=== PATIENT | male | born 1995 | race Two or more races ===

== ENCOUNTER 2016-10-11 10:52 | Emergency (ER) | payer OTHER ==
[~2016-10-11] VITALS: Ht 170.2 cm; Wt 78.0 kg
[~2016-10-11 10:52] MED LIST: AMOXICILLIN500 MG PO; AMOXICILLIN875 MG PO; CLONAZEPAM0.5 MG PO; CYANOCOBALAM1000 MCG PO; Ceftin PO; DECADRON0.5 MG PO; DECADRON2 MG PO; DEXAMETHASONE PO; DEXAMETHASONE0.5 MG PO; EFFEXOR75 MG PO; FLORINEF ACETA0.1 MG PO; FOLIC ACID1 MG PO; GINKGO BILOBA120 MG PO; LO-DOSE ASPIRIN81 M1 PO; MOTRIN600 MG PO; NAPROSYN500 MG PO; NICOTINE PATCH1 EAC1 TD; OMEPRAZOLE20 MG PO; OMEPRAZOLE40 M1 PO; PRILOSEC40 MG PO; RISPERIDONE3 MG PO; STRESS; SUBOXONE 8 MG-1 EAC2 SL; TAMIFLU75 MG PO; THERAGRAN1 TABLET PO; Thiamine,Vitamin B1 PO; VIIBRYD40 MG PO; VISINE15 ML BOTH EYES; VITAMIN B-1100 MG PO; ZOFRAN ODT8 MG PO; ZOFRAN4 MG PO; ZUBSOLV 8.6-2.1 EACH SL; [UNRECOGNIZED DRUG - REMARK] PO
[2016-10-11 11:23] LABS: HEMATOCRIT 54.9 % (38.0-50.0); MCH 31.1 PG (29.0-34.0); MCHC 35.3 G/DL (30.0-36.0); MEAN PLAT.VOLUME 10.3 uM^3 (9.0-12.4); PLATELET COUNT 169 K/uL (156-360); RBC DIS.WIDTH-CV 12.4 % (11.8-14.6); RBC DIS.WIDTH-SD 40.6 % (39-53); RED BLOOD COUNT 6.24 M/uL (4.00-5.50); WHITE BLOOD COUNT 13.6 K/uL (4.1-10.2)
[2016-10-11 11:30] LABS: CHLORIDE 105 mEq/L (99-109); POTASSIUM 4.2 mEq/L (3.7-5.4); SODIUM 136 mEq/L (136-147)
[2016-10-11 11:33] LABS: GLUCOSE 85 mg/dL (70-99)
[2016-10-11 11:34] LABS: ANION GAP 8 MEQ/L (2-14)
[2016-10-11 11:35] LABS: TOTAL BILIRUBIN 0.6 mg/dL (0.0-1.0)
[2016-10-11 11:36] LABS: ALKALINE PHOSPHATASE 71 IU/L (3-129); GFR ESTIMATE (CALCULATED) > 59 mL/min/
[2016-10-11 11:37] LABS: UREA NITROGEN (BUN) 17 mg/dL (9-23)
[2016-10-11 13:10] LABS: BILIRUBIN NEGATIVE; BLOOD NEGATIVE; COLOR YELLOW ((YELLOW)); GLUCOSE (STRIP) NEGATIVE; KETONES NEGATIVE; LEUKOCYTES NEGATIVE; NITRITE NEGATIVE; PROTEIN (STRIP) NEGATIVE; SPECIFIC GRAVITY 1.023 (1.000-1.030); UROBILINOGEN 0.2 MG/DL (0.2-1.0)
[2016-10-11 13:28] LABS: ADD MIUA? NO; UCUL ADDED? NO
[2016-10-11] MEDS ORDERED: BENTYL20 MG PO (15:00)
[2016-10-11] MEDS ORDERED: IMODIUM MS REL1 EACH PO (15:00)
[2016-10-11] MEDS ORDERED: ZOFRAN ODT4 MG PO (15:00)
[2016-10-11 15:19] VITALS: BP 96/65
== END 2016-10-11 15:15 | disposition home or self-care (01) ==
LOC: EME 10:52
DX: R10.9 Unspecified abdominal pain (principal); R11.10 Vomiting, unspecified; R19.7 Diarrhea, unspecified; K21.9 Gastro-esophageal reflux disease without esophagitis; J45.909 Unspecified asthma, uncomplicated; F17.200 Nicotine dependence, unspecified, uncomplicated
CPT/HCPCS: 80053; 81003; 85027; 99281; 99285; J2405; J2930; J7030

== ENCOUNTER 2017-12-13 23:01 | Emergency (ER) | payer OTHER ==
[~2017-12-13] VITALS: Ht 167.6 cm; Wt 90.4 kg
[~2017-12-13 23:01] MED LIST changes: +BENTYL20 MG PO; +IMODIUM MS REL1 EACH PO; +ZOFRAN ODT4 MG PO
[2017-12-13 23:46] LABS: HEMATOCRIT 41.2 % (38.0-50.0); MCH 31.1 PG (29.0-34.0); MCHC 36.4 G/DL (30.0-36.0); MCV 85.5 FL (86-99); PLATELET COUNT 215 K/uL (156-360); RBC DIS.WIDTH-CV 11.5 % (11.8-14.6); RBC DIS.WIDTH-SD 35.8 % (39-53); RED BLOOD COUNT 4.82 M/uL (4.00-5.50); WHITE BLOOD COUNT 9.6 K/uL (4.1-10.2)
[2017-12-14] LABS: CHLORIDE 95 mEq/L (99-109); POTASSIUM 3.1 mEq/L (3.7-5.4); SODIUM 128 mEq/L (136-147)
[2017-12-14 00:02] LABS: GLUCOSE 107 mg/dL (70-99)
[2017-12-14 00:05] LABS: SERUM ETHYL ALCOHOL < 10 mg/dL
[2017-12-14 00:06] LABS: GFR ESTIMATE (CALCULATED) > 59 mL/min/ (58.99-99999); UREA NITROGEN (BUN) 8 mg/dL (9-23)
[2017-12-14 00:18] LABS: APPEARANCE CLEAR ((CLEAR)); BILIRUBIN NEGATIVE; BLOOD NEGATIVE; COLOR YELLOW ((YELLOW)); GLUCOSE (STRIP) NEGATIVE; KETONES NEGATIVE; LEUKOCYTES NEGATIVE; NITRITE NEGATIVE; PROTEIN (STRIP) NEGATIVE; SPECIFIC GRAVITY 1.019 (1.000-1.030); UCUL ADDED? NO
[2017-12-14 00:41] LABS: AMPHETAMINE NEGATIVE (500 ng/mL); BARBITURATES NEGATIVE (200 ng/mL); BENZODIAZEPINES NEGATIVE (150 ng/mL); BUPRENORPHINE NEGATIVE (10 ng/mL); COCAINE NEGATIVE (150 ng/mL); METHADONE NEGATIVE (200 ng/mL); METHAMPHETAMINE NEGATIVE (500 ng/mL); OPIATES (MORPHINE) NEGATIVE (100 ng/mL); OXYCODONE NEGATIVE (100 ng/mL); PHENCYCLIDINE NEGATIVE (25 ng/mL); PROPOXYPHENE NEGATIVE (300 ng/mL); THC CANNABINOIDS NEGATIVE (50 ng/mL); TRICYCLIC ANTIDEPRESSANTS NEGATIVE (300 ng/mL)
[2017-12-14] MEDS ORDERED: TRAZODONE HCL50 MG PO (03:30)
[2017-12-14 03:45] VITALS: BP 137/90
== END 2017-12-14 03:52 | disposition home or self-care (01) ==
LOC: EME 23:01
PROVIDERS: Emergency Medicine
DX: G47.00 Insomnia, unspecified (principal); E87.6 Hypokalemia; E87.1 Hypo-osmolality and hyponatremia; R68.89 Other general symptoms and signs; K21.9 Gastro-esophageal reflux disease without esophagitis; N18.9 Chronic kidney disease, unspecified; N19 Unspecified kidney failure; J45.909 Unspecified asthma, uncomplicated; F32.9 Major depressive disorder, single episode, unspecified; Z87.891 Personal history of nicotine dependence; Z86.2 Personal history of diseases of the blood and blood-forming organs and certain disorders involving the immune mechanism; Z87.898 Personal history of other specified conditions; Z81.8 Family history of other mental and behavioral disorders; Z88.8 Allergy status to other drugs, medicaments and biological substances
CPT/HCPCS: 80048; 81003; 85027; 90839; G0480; J7030